=== PATIENT | male | born 1940 | race Asian ===

== ENCOUNTER 2017-02-06 05:40 | Emergency (ER) | payer MEDICARE ==
[~2017-02-06] VITALS: Ht 165.1 cm; Wt 68.0 kg
[2017-02-06 05:57] VITALS: BP 138/71
[2017-02-06] MEDS ORDERED: LIDOCAINE HCL 1% 20ML VIAL (Pyxis) INJ INFIL ONE (07:45)
[2017-02-06] MEDS ORDERED: BACITRACIN ZINC OINT UDPKT TOP ONE (08:00)
== END 2017-02-06 08:57 | disposition home or self-care (01) ==
LOC: ER 05:46
DX: S01.81XA Laceration without foreign body of other part of head, initial encounter (principal); E11.9 Type 2 diabetes mellitus without complications; I10 Essential (primary) hypertension; W22.8XXA Striking against or struck by other objects, initial encounter; Y93.89 Activity, other specified; Y92.520 Airport as the place of occurrence of the external cause; Y99.8 Other external cause status
CPT/HCPCS: 12011; 99283; J3490